=== PATIENT | female | born 1955 | race Caucasian/White ===

== ENCOUNTER 2018-12-07 14:35 | Emergency (ER) | payer MEDICARE, MEDICAID ==
--- OUTSIDE RECORDS SUMMARY | 2018-12-07 14:47 | XMS REPORT | Continuity of Care Document ---
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 [employer] Darline Sequeira PayID: [id number] [address] [place] [address] Policy Number: [id number] Medicaid Darline Sequeira PayID: [id number] [address] [place] [address] Problems Active Problems Provider Date Benign essential hypertension Kita Sauceda MD Onset: 02/23/2018 Mixed hyperlipidemia Kita Sauceda MD Onset: 02/23/2018 Pure hypercholesterolemia Kita Sauceda MD Onset: 02/23/2018 Family History Date Family Member(s) Observation Comments : (age 72 Mother due to Cervical Years) Cancer Onset: (age 45 Years) First Daughter Colon Cancer : (age 50 First Brother due to Premature Alcholic Years) Heart Attack Second Brother due to motor cycle () accident First Sister cancer,melonoma Third Grandson bone,cancer Maternal Grandmother due to Diabetes () Social History Type Date Description Comments Sex Unknown Marital Status Patient is Lives With Alone Home Environment Lives With Grandchildren,whom she fosters Occupation Unemployed Occupation Disabled Tobacco Use Start: Unknown Patient is a current cigarette smoker, smokes every day Smoking Status Reviewed: 11/15/18 Patient is a current cigarette smoker, smokes every day Smokeless Tobacco Never Used Smokeless Tobacco ETOH Use Drinks Alcoholic Beverages Rarely Tobacco Use Start: Unknown Patient is a current Less than half of a smoker, smokes every pack day Recreational Drug Use Denies Drug Use Exercise Type/Frequency Does not exercise Allergies, Adverse Reactions, Alerts Description No Known Drug Allergies Medications Active Medications SIG Qnty Indications Ordering Date Provider Metoprolol Tartrate 1 by mouth twice 60tabs Kita Sauceda MD 11/03/2018 25mg a day Tablets Myrbetriq 1 by mouth every 30tabs Igor Fuentes 08/18/2018 50mg Tablets ER day M.D. 24HR Fluoxetine HCL 1 po in am Jacquelin Stefanie 10mg TRAV [place] Capsules Chantix 1 po twice daily [facility] 1mg Tablets in am and pm TRAV [place] Gabapentin take one tablet Unknown 800mg Tablets by mouth three times a day Victoza [facility] 18mg/3ML Solution TRAV [place] Pen-Inject Furosemide 1 po daily [facility] 20mg Tablets TRAV [place] Amitriptyline HCL 1 by mouth every Unknown 50mg day Tablets Clotrimazole apply to affected Unknown 1% Cream area twice a day Ezetimibe 1 by mouth every Unknown 10mg Tablets day Nystop apply under Unknown [id number] breast area twice Powder a day Meloxicam 1 by mouth every Unknown 15mg Tablets day c food Loratadine 1 by mouth every Unknown 10mg Tablets day Levemir Flextouch Inject 70 Units Unknown Under The Skin 100Unit/ML Solution Once Daily Taper Pen-Inject Down Bupropion HCL ER (XL) Take One Tablet Unknown By Mouth Every 300mg Tablets ER 24HR Day Miralax 17g by mouth Unknown [id number] Packet twice a day as needed constipation. Omeprazole 1 by mouth every Unknown 20mg Capsules day DR Metformin HCL 1 by mouth twice Unknown 1000mg a day Tablets Fenofibrate 1 by mouth every Unknown 145mg Tablets day Symbicort 2 puff twice a Unknown 160-4.5mcg/Act day Aerosol Aspirin Ec 1 by mouth every Unknown 81mg Tablets day DR Ahumada HFA 2 puffs every 4-6 Unknown 108(90Base) hours as needed mcg/Act Aerosol sob History Medications Cipro 1 by mouth twice a 10tabs Alfredo, 09/05/2018 - 500mg Tablets day Martha Costa Unknown Bactrim DS 1 tab by mouth 14tabs Alfredo, 08/22/2018 - 800-160mg twice a day Martha Costa Unknown Tablets Colace 1 by mouth daily 60caps K59.00 Sinan, 06/16/2018 - 100mg Capsules and can take twice MD Kenneth 07/21/2018 a day as needed Dulcolax take one a night 10tabs K59.00 Sinan, 06/16/2018 - 5mg Tablets DR the week before MD Kenneth 07/21/2018 the colonoscopy Citroma drink 1 bottle at 296ml K59.00 Sinan, 06/16/2018 - 1.745GM/30ML 12pm (noon)the day MD Kenneth 07/21/2018 Solution before the procedure Spiriva Respimat take 2 puffs once 4gm J44.9 Srini Nelson, 06/04/2016 - daily. Please load 06/16/2018 2.5mcg/Act Aerosol and teach medication. Nicotine Polacrilex take 1 piece every 1units F17.210 Srini Nelson, 2016 - 2mg 2 hours as needed Unknown Gum for cravings. Nicotine use one patch once 28units F17.210 Srini Nelson, 06/04/2016 - 14mg/24HR daily. Unknown Patches 24HR Allopurinol 1 by mouth every Unknown - 100mg Tablets day 06/16/2018 Calcium 600+D High 1 by mouth twice a Unknown - Potency day 06/16/2018 [id number] Tablets Cyclobenzaprine HCL 1-2 tabs by mouth Unknown - 5mg every night at 07/21/2018 Tablets bedtime Zetia 1 by mouth every Unknown - 10mg Tablets day 07/21/2018 Fluconazole 1 by mouth by Unknown - 150mg Tablets mouth every day 06/16/2018 Glipizide 1 by mouth every Unknown - 5mg Tablets day Unknown Hydrocodone-Acetaminop 1 by mouth every 6 Unknown - hen hours as needed 07/21/2018 5-325mg Tablets pain Levothyroxine Sodium 1 by mouth every Unknown - day Unknown 50mcg Tablets Lisinopril 1 by mouth every Unknown - 20mg Tablets day Unknown Metoprolol Succinate 1 by mouth two Unknown - ER times a day 06/16/2018 25mg Tablets ER 24HR Multi Vitamin 1 by mouth every Unknown - Tablets day 06/16/2018 Oxybutynin Chloride Unknown - 07/27/2018 5mg/5ML Syrup Vital Signs Date Vital Result Comment 11/15/2018 11:26am BP Systolic Sitting Left Arm 122 mmHg BP Diastolic Sitting Left Arm 64 mmHg Heart Rate 93 /min Respiratory Rate 20 /min Height 59 inches 4'11" Weight 252.00 lb BMI (Body Mass Index) 50.9 kg/m2 BSA (Body Surface Area) 2.03 m2 Fielding body weight in kilograms 45 kg O2 Saturation Level with Exercise 97 % 10/04/2018 10:23am BP Systolic 110 mmHg BP Diastolic 74 mmHg Heart Rate 94 /min Respiratory Rate 18 /min Height 59 inches 4'11" Weight 246.00 lb BMI (Body Mass Index) 49.7 kg/m2 BSA (Body Surface Area) 2.01 m2 Fielding body weight in kilograms 45 kg O2 % BldC Oximetry 97 % 09/14/2018 1:18pm BP Systolic 102 mmHg BP Diastolic 68 mmHg Heart Rate 89 /min Respiratory Rate 18 /min Height 59 inches 4'11" Weight 259.00 lb BMI (Body Mass Index) 52.3 kg/m2 BSA (Body Surface Area) 2.06 m2 Fielding body weight in kilograms 45 kg O2 % BldC Oximetry 93 % Pain Level 8 hip pain 08/23/2018 10:49am BP Systolic Sitting Left Arm 110 mmHg BP Diastolic Sitting Left Arm 64 mmHg Heart Rate 80 /min Respiratory Rate 18 /min Height 61 inches 5'1" Weight 268.00 lb BMI (Body Mass Index) 50.6 kg/m2 BSA (Body Surface Area) 2.14 m2 Fielding body weight in kilograms 48 kg O2 % BldC Oximetry 97 % 08/18/2018 3:43pm BP Systolic 115 mmHg BP Diastolic 68 mmHg Body Temperature 97.8 F Heart Rate 81 /min Respiratory Rate 18 /min O2 % BldC Oximetry 95 % Pain Level 7 back and hip pain 08/11/2018 12:26pm BP Systolic 119 mmHg BP Diastolic 68 mmHg Body Temperature 99.3 F Heart Rate 116 /min Respiratory Rate 18 /min O2 % BldC Oximetry 96 % Pain Level 0 07/27/2018 11:30am BP Systolic 119 mmHg BP Diastolic 76 mmHg Body Temperature 98.8 F Heart Rate 68 /min Respiratory Rate 20 /min Height 59.25 inches 4'11.25" Weight 229.00 lb Pt reported weight BMI (Body Mass Index) 45.9 kg/m2 BSA (Body Surface Area) 1.96 m2 Fielding body weight in kilograms 45 kg O2 % BldC Oximetry 99 % Ra Pain Level 7 RT Hip, Lower Mid Back 07/21/2018 1:30pm BP Systolic 138 mmHg BP Diastolic 89 mmHg Body Temperature 97.9 F Heart Rate 81 /min Respiratory Rate 18 /min Weight 229.00 lb O2 % BldC Oximetry 97 % Pain Level 6 lower spine 06/16/2018 2:43pm BP Systolic Sitting Left Arm 130 mmHg BP Diastolic Sitting Left Arm 70 mmHg Heart Rate 78 /min Respiratory Rate 18 /min Height 59 inches 4'11" Weight 230.00 lb per pt BMI (Body Mass Index) 46.4 kg/m2 BSA (Body Surface Area) 1.96 m2 Fielding body weight in kilograms 45 kg O2 % BldC Oximetry 98 % 06/02/2018 2:54pm BP Systolic Sitting Left Arm 104 mmHg BP Diastolic Sitting Left Arm 58 mmHg Heart Rate 101 /min Respiratory Rate 18 /min Height 59 inches 4'11" Weight 251.00 lb BMI (Body Mass Index) 50.7 kg/m2 BSA (Body Surface Area) 2.03 m2 Fielding body weight in kilograms 45 kg O2 % BldC Oximetry 94 % Ora 06/04/2016 3:47pm BP Systolic Sitting Right Arm 136 mmHg BP Diastolic Sitting Right Arm 70 mmHg Heart Rate 85 /min Respiratory Rate 16 /min Height 59 inches 4'11" Weight 240.00 lb BMI (Body Mass Index) 48.5 kg/m2 BSA (Body Surface Area) 1.99 m2 Fielding body weight in kilograms 45 kg O2 % BldC Oximetry 92 % Room Air Results Test Date Facility Test Result H/L Range Note Urine Culture 09/14/2018 [facility] Urine Culture NO GROWTH: 1, [address] FINAL <[place] [address] NOTE> [phone] Lab Report: 09/05/2018 N2N/CCD Import Egfr 59.1 (?) >60 A1c, CMP Qatari Egfr Non- 48.8 (?) >60 Ast 19 U/L 13-39 Alt 9 U/L 7-52 Alkaline Phosphatase 50 U/L 34-104 Total Bilirubin 0.50 mg/dL 0.2-1.0 Albumin/Globulin Ratio 1.6 1-3 Globulin 2.6 2-4 Albumin 4.1 g/dL 3.2-5.2 Total Protein 6.7 g/dL 6.4-8.9 Calcium 9.8 mg/dL 8.6-10.3 BUN/Creatinine Ratio 22.3 High 8-20 Creatinine 1.12 mg/dL High 0.51-0.95 Blood Urea Nitrogen 25 mg/dL High 6-24 Co2 Carbon Dioxide 24 mmol/L 22-32 Chloride 99 mmol/L Low 101-111 Potassium 4.8 mmol/L 3.5-5.0 Sodium 134 mmol/L Low 135-145 Hemoglobin A1c/Hemoglobin.total in Blood 9.7 % High 4.0-5.6 Urine Culture 09/02/2018 [facility] Urine ENTEROBACTER LATRICE Abnormal [address] Culture <SEE NOTE> [place] [address] [phone] Quantity > 100,000 CFU/mL 4 Urine Culture PROTEUS MIRABILI <SEE NOTE> Abnormal 5 Quantity 50,000 - 100,000 <SEE NOTE> 6 Enterobacter Cloacae Complex 09/02/2018 [facility] Nitrofurantoin [address] [place] [address] [phone] Trimethoprim/Sulfamethoxazole >=320 R Cefazolin >=64 R Ciprofloxacin <=0.25 S Piperacillin/Tazobactam <=4 S Ceftazidime <=1 S Ceftriaxone <=1 S Cefepime <=1 S Levofloxacin <=0.12 S Imipenem <=0.25 S Gentamicin <=1 S Tobramycin <=1 S Proteus Mirabilis 09/02/2018 [facility] Nitrofurantoin [address] [place] [address] [phone] Trimethoprim/Sulfamethoxazole >=320 R Ampicillin <=2 S Cefazolin 8 S Ampicillin/Sulbactam <=2 S Ciprofloxacin 2 I Piperacillin/Tazobactam <=4 S Ceftazidime <=1 S Ceftriaxone <=1 S Cefepime <=1 S Levofloxacin 2 S Gentamicin <=1 S Tobramycin <=1 S Urine Culture 08/18/2018 [facility] Urine Culture ESCHERICHIA COLI Abnormal [address] [place], [place] [id number] [phone] Quantity > 100,000 CFU/mL 8 Urine Culture MIXED URETHRAL F <SEE NOTE> 9 Quantity 10,000 - 100,000 <SEE NOTE> 10 Escherichia Coli 08/18/2018 [facility] Nitrofurantoin <=[address] [place] [address] [phone] Trimethoprim/Sulfamethoxazole <=20 S Ampicillin 8 S Cefazolin <=4 S Ampicillin/Sulbactam 4 S Ciprofloxacin <=0.25 S Piperacillin/Tazobactam <=4 S Ceftazidime <=1 S Ceftriaxone <=1 S Cefepime <=1 S Levofloxacin <=0.12 S Imipenem <=0.25 S Gentamicin <=1 S Tobramycin <=1 S Urine Dipstick 08/18/2018 [facility] Ua Color yellow Yellow Ua Clarity clear Clear Ua Leuko 15 High Negative Ua Nitrite neg Negative Ua Urobilinogen 0.2 0.2 - 1.0 E.U./dL Ua Protein neg Negative Ua PH 6.5 6.5-7.5 Ua Blood neg Negative Ua Specific [place] 1.015 1.010-1.030 Ua Ketones neg Negative Ua Bilirubin neg Negative Ua Glucose neg Negative Lab Report: 08/04/2018 N2N/CCD Import Hemoglobin 10.2 % High 4.0-5.6 CMP, Lipid A1c/Hemoglobin.total in Panel, A1c Blood Cholesterol in LDL [Mass/volume] in Serum or Plasma 51 mg/dL HDL Cholesterol 35.8 mg/dL Cholesterol 120 mg/dL Triglycerides 167 mg/dL Egfr 72.3 (?) >60 Egfr Non- 59.8 (?) >60 Ast 21 U/L 13-39 Alt 11 U/L 7-52 Alkaline Phosphatase 72 U/L 34-104 Total Bilirubin 0.60 mg/dL 0.2-1.0 Albumin/Globulin Ratio 1.4 1-3 Globulin 2.9 2-4 Albumin 4.1 g/dL 3.2-5.2 Total Protein 7.0 g/dL 6.4-8.9 Calcium 9.6 mg/dL 8.6-10.3 BUN/Creatinine Ratio 21.3 High 8-20 Creatinine 0.94 mg/dL 0.51-0.95 Blood Urea Nitrogen 20 mg/dL 6-24 Co2 Carbon Dioxide 26 mmol/L 22-32 Chloride 99 mmol/L Low 101-111 Potassium 4.7 mmol/L 3.5-5.0 Sodium 134 mmol/L Low 135-145 Lab Report: Ua RFX 03/09/2018 N2N/CCD Import Urine Leuk Negative Negative Micro Culture II Esterase Urine Nitrite - Dipstick Negative Negative Urine Urobilinogen - Dipstick 0.2 E.U./DL 0.2-1.0 Urine Blood Negative Negative Urine Specific [place] 1.010 1.010-1.030 Urine Ketone Negative Negative Urine Bilirubin - Dipstick Negative Negative Urine Glucose - Dipstick 100 High Negative Urine Color Yellow Yellow Lab Report: CBS W/Automated 03/09/2018 N2N/CCD Import Eos # 0.15 10*3/uL 0.0-0.5 Diff Eo% 1.1 % 0.0-6.6 Coal % 4.8 % 4.3-13.2 Lymph % 32.1 % 20.0-42.0 Neut% 61.6 % 40.4-72.8 Mean Platelet Volume 10.7 fL 8.9-12.4 Red Cell Distri Width SD 42.9 fL 3-47 Platelet Count 155 10*3/mm3 155-360 Mean Corpuscular HGB Conc 34.5 g/dL High 30.8-34.3 Mean Corpuscular HGB 30.7 pg 25.9-32.7 Mean Cell Volume 89.0 fL 80.9-99.0 Hematocrit 39.7 % 36.0-46.1 Hemoglobin 13.7 g/dL 11.6-15.8 Red Blood Count 4.46 M/Ul 3.90-5.40 White Blood Count 13.7 10*3/mm3 High 3.1-10.7 Lab Report: Comprehensive 03/09/2018 N2N/CCD Import SGPT/Alt 13 U/L 12- 78 Metabolic Panel Sgot/Ast 17 U/L 15-37 Bilirubin,Total 0.5 mg/dL 0.2-1.0 Alb/Glob 0.9 ratio Globulin 3.6 g/dL 1.9-4.3 Albumin 3.3 g/dL Low 3.4-5.0 Total Protein 6.9 g/dL 6.4-8.2 Calcium 9.4 mg/dL 8.5-10.1 Carbon Dioxide 26 mmol/L 21-32 Chloride 107 mmol/L 98-107 Potassium 4.1 mmol/L 3.5-5.1 Sodium 140 mmol/L 136-145 BUN/Creat 16.0 ratio If >60 >60 Glom Filtration Rate, Estimate 59 mL/min/1.73m2 >60 Creatinine 1.0 mg/dL 0.6-1.3 BUN 16 mg/dL 7-18 Lab Report: Basic Metabolic 01/31/2018 N2N/CCD Import Calcium 8.9 mg/dL 8.5-10.1 Panel Carbon Dioxide 25 mmol/L 21-32 Chloride 105 mmol/L 98-107 Potassium 4.6 mmol/L 3.5-5.1 Sodium 139 mmol/L 136-145 BUN/Creat 38.8 ratio If >60 >60 Glom Filtration Rate, Estimate >60 mL/min >60 Creatinine 0.9 mg/dL 0.6-1.3 BUN 35 mg/dL High 7-18 Lab Report: CBC 01/30/2018 N2N/CCD Import Mean Platelet Volume 12.0 fL 8.9-12.4 Platelet Count 176 10*3/mm3 155-360 Mean Corpuscular HGB Conc 34.0 g/dL 30.8-34.3 Mean Corpuscular HGB 30.4 pg 25.9-32.7 Mean Cell Volume 89.2 fL 80.9-99.0 Hematocrit 37.3 % 36.0-46.1 Hemoglobin 12.7 g/dL 11.6-15.8 Red Blood Count 4.18 M/Ul 3.90-5.40 White Blood Count 19.3 10*3/mm3 High 3.1-10.7 Lab Report: Glycohemoglobin A1c 01/29/2018 N2N/Newsblur Import eAG 160 mg/dL Hemoglobin A1c/Hemoglobin.total in Blood 7.2 % High 4.2-6.3 Lab Report: 01/29/2018 N2N/CCD Import Arterial Blood 7.47 High 7.35-7.45 Arterial Blood Gas pH Gas Lab Report: Basic 01/29/2018 N2N/CCD Import Calcium 9.0 mg/dL 8.5-10.1 Metabolic Panel Carbon Dioxide 22 mmol/L 21-32 Chloride 103 mmol/L 98-107 Potassium 3.9 mmol/L 3.5-5.1 Sodium 137 mmol/L 136-145 BUN/Creat 20.0 ratio If >60 >60 Glom Filtration Rate, Estimate 53 mL/min/1.73m2 >60 Creatinine 1.1 mg/dL 0.6-1.3 BUN 22 mg/dL High 7-18 Lab Report: CED W/Automated 01/29/2018 N2N/CCD Import Eos # 0.01 10*3/uL 0.0-0.5 Diff Eo% 0.1 % 0.0-6.6 Coal % 2.0 % Low 4.3-13.2 Lymph % 9.3 % Low 20.0-42.0 Neut% 88.5 % High 40.4-72.8 Mean Platelet Volume 11.4 fL 8.9-12.4 Red Cell Distri Width SD 40.1 fL 3-47 Platelet Count 180 10*3/mm3 155-360 Mean Corpuscular HGB Conc 35.3 g/dL High 30.8-34.3 Mean Corpuscular HGB 30.8 pg 25.9-32.7 Mean Cell Volume 87.2 fL 80.9-99.0 Hematocrit 41.6 % 36.0-46.1 Hemoglobin 14.7 g/dL 11.6-15.8 Red Blood Count 4.77 M/Ul 3.90-5.40 White Blood Count 14.8 10*3/mm3 High 3.1-10.7 Lab Report: CED W/Automated 01/28/2018 N2N/CCD Import Eos # 0.05 10*3/uL 0.0-0.5 Diff, Slide Review, DI Eo% 0.3 % 0.0-6.6 Coal % 5.0 % 4.3-13.2 Lymph % 20.6 % 20.0-42.0 Neut% 73.8 % High 40.4-72.8 Mean Platelet Volume 11.0 fL 8.9-12.4 Red Cell Distri Width SD 41.4 fL 3-47 Platelet Count 194 10*3/mm3 155-360 Mean Corpuscular HGB Conc 35.0 g/dL High 30.8-34.3 Mean Corpuscular HGB 30.8 pg 25.9-32.7 Mean Cell Volume 87.8 fL 80.9-99.0 Hematocrit 41.1 % 36.0-46.1 Hemoglobin 14.4 g/dL 11.6-15.8 Red Blood Count 4.68 M/Ul 3.90-5.40 White Blood Count 18.4 10*3/mm3 High 3.1-10.7 Lab Report: Comprehensive 01/28/2018 N2N/CCD Import Troponin-I 0.037 ng/mL Metabolic Panel NT-proBNP 2670.0 High <125 SGPT/Alt 9 U/L Low 12-78 Sgot/Ast 8 U/L Low 15-37 Bilirubin,Total 1.1 mg/dL High 0.2-1.0 Alb/Glob 0.9 ratio Globulin 3.8 g/dL 1.9-4.3 Albumin 3.6 g/dL 3.4-5.0 Total Protein 7.4 g/dL 6.4-8.2 Calcium 8.9 mg/dL 8.5-10.1 Carbon Dioxide 24 mmol/L 21-32 Chloride 104 mmol/L 98-107 Potassium 4.1 mmol/L 3.5-5.1 Sodium 138 mmol/L 136-145 BUN/Creat 16.6 ratio If 58 mL/min >60 Glom Filtration Rate, Estimate 48 mL/min/1.73m2 >60 Creatinine 1.2 mg/dL 0.6-1.3 BUN 20 mg/dL High 7-18 Lab Report: CBC, CMP, Lipid 01/17/2018 N2N/CCD Import Albumin 3.9 g/dL 3.2-5.2 Panel, A1c Albumin/Globulin Ratio 1.4 1-3 Alkaline Phosphatase 82 U/L 34-104 Alt 7 U/L 7-52 Ast 18 U/L 13-39 BUN/Creatinine Ratio 21.9 High 8-20 Blood Urea Nitrogen 16 mg/dL 6-24 Calcium 9.4 mg/dL 8.6-10.3 Chloride 104 mmol/L 101-111 Cholesterol 199 mg/dL Cholesterol in LDL [Mass/volume] in Serum or Plasma 123 mg/dL Co2 Carbon Dioxide 23 mmol/L 22-32 Creatinine 0.73 mg/dL 0.51-0.95 Egfr 97.1 (?) >60 Egfr Non- 80.3 (?) >60 Globulin 2.8 2-4 HDL Cholesterol 33.8 mg/dL Hematocrit 44 % 35-47 Hemoglobin 14.9 g/dL 12.0-16.0 Hemoglobin A1c/Hemoglobin.total in Blood 7.2 % High 4.0-5.6 Mean Corpuscular HGB Conc 34 g/dL 31-36 Mean Corpuscular Hemoglobin 30 pg 27-31 Mean Corpuscular Volume 89 fL 80-97 Mean Platelet Volume 9.5 Um3 7.4-10.4 Platelet Count 190 10 3/Ul 150-450 Potassium 4.0 mmol/L 3.5-5.0 Red Blood Count 4.91 10 6/Ul 4.00-5.40 Red Cell Distribution Width 13 % 10.5-15 Sodium 138 mmol/L 135-145 Total Bilirubin 0.60 mg/dL 0.2-1.0 Total Protein 6.7 g/dL 6.4-8.9 Triglycerides 211 mg/dL White Blood Count 14.6 10 3/Ul High 3.5-10.8 Lab Report: CBC, CMP, Lipid 10/22/2017 N2N/CCD Import Albumin 4.2 g/dL 3.2-5.2 Panel, TSH, Vitamin B1 Albumin/Globulin Ratio 1.4 1-3 Alkaline Phosphatase 95 U/L 34-104 Alt 5 U/L Low 7-52 Ast 18 U/L 13-39 BUN/Creatinine Ratio 19.0 8-20 Blood Urea Nitrogen 16 mg/dL 6-24 Calcium 10.1 mg/dL 8.6-10.3 Chloride 104 mmol/L 101-111 Cholesterol 238 mg/dL Cholesterol in LDL [Mass/volume] in Serum or Plasma 152 mg/dL Co2 Carbon Dioxide 28 mmol/L 22-32 Creatinine 0.84 mg/dL 0.51-0.95 Egfr 87.8 (?) >60 Egfr Non- 68.3 (?) >60 Globulin 3.0 2-4 HDL Cholesterol 43.4 mg/dL Hematocrit 47 % 35-47 Hemoglobin 16.1 g/dL High 12.0-16.0 Hemoglobin A1c/Hemoglobin.total in Blood 6.0 % High 4.0-5.6 Mean Corpuscular HGB Conc 34 g/dL 31-36 Mean Corpuscular Hemoglobin 31 pg 27-31 Mean Corpuscular Volume 90 fL 80-97 Mean Platelet Volume 9.3 Um3 7.4-10.4 Platelet Count 177 10 3/Ul 150-450 Potassium 4.7 mmol/L 3.5-5.0 Red Blood Count 5.26 10 6/Ul 4.0-5.4 Red Cell Distribution Width 14 % 10.5-15 Sodium 140 mmol/L 139-145 TSH (Thyroid Stimulating Horm) 2.80 u[iU]/mL 0.34-5.60 Total Bilirubin 0.70 mg/dL 0.2-1.0 Total Protein 7.2 g/dL 6.4-8.9 Triglycerides 213 mg/dL White Blood Count 15.0 10 3/Ul High 3.5-10.8 Lab Report: TSH, Free T4, CMP, 06/26/2016 N2N/CCD Import Albumin 4.2 g/dL 3.2-5.2 Lipid Panel, A1c Albumin/Globulin Ratio 1.3 1-3 Alkaline Phosphatase 116 U/L High 34-104 Alt 8 U/L 7-52 Ast 25 U/L 13-39 BUN/Creatinine Ratio 14.1 8-20 Blood Urea Nitrogen 11 mg/dL 6-24 Calcium 9.9 mg/dL 8.6-10.3 Chloride 101 mmol/L 101-111 Cholesterol 230 mg/dL Cholesterol in LDL [Mass/volume] in Serum or * mg/dL Plasma Co2 Carbon Dioxide 21 mmol/L Low 22-32 Creatinine 0.78 mg/dL 0.51-0.95 Egfr 95.9 (?) >60 Egfr Non- 74.6 (?) >60 Globulin 3.2 2-4 HDL Cholesterol 29.1 mg/dL Hemoglobin A1c/Hemoglobin.total in Blood 11.2 % High Less than 6.0 Potassium 4.1 mmol/L 3.5-5.0 Sodium 135 mmol/L 133-145 TSH (Thyroid Stimulating Horm) 2.85 u[iU]/mL 0.34-5.60 Total Protein 7.4 g/dL 6.4-8.9 Triglycerides 453 mg/dL 1 N39.0 2 NO GROWTH: FINAL REPORT 3 ENTEROBACTER CLOACAE COMPLEX 4 > 100,000 CFU/mL 5 PROTEUS MIRABILIS 6 50,000 - 100,000 CFU/mL 7 ESCHERICHIA COLI 8 > 100,000 CFU/mL 9 MIXED URETHRAL CAROLINE 10 10,000 - 100,000 CFU/mL Procedures Date Code Description Status 10/10/2018 86344 Stress Test Interpre And Report Only Completed 10/10/2018 85388 Stress Test Physician Super Only Completed 10/10/2018 47048 Myocardial Imaging Tomographic Multiple Study AT Rest Completed Or Stress 10/04/2018 06225 EKG-Tracing And Report Completed 09/14/2018 48042 Bladder Catheterization Completed 08/18/2018 13278 Cystoscopy Completed 08/11/2018 48785 Bladder Catheterization Completed 08/11/2018 42781 Cystometrogram complex w/ voiding and urethral pressure Completed studies 08/11/2018 71926 complex uroflowmetry electronic Completed 08/11/2018 70443 emg studies of urethral sphincter, other than needle, Completed any tech 08/11/2018 43163 voiding pressure study vp purchasing intra abdominal voiding Completed pressure ap 07/06/2018 63250 Colonoscopy With Biopsy Completed 07/06/2018 [id number] Colonoscopy Completed 06/16/2018 47927 Echocardiogram Complete Completed 06/02/2018 02065 EKG-Tracing And Report Completed 06/22/2016 51314 Bronchospasm Provocation Evaluation Multi Spirometric Completed Determinati 06/22/2016 68365 Spirometry Completed Encounters Type Date Location Provider Dx Diagnosis Office Visit 11/15/2018 Cardiology Office Kita Sauceda MD I34.2 Nonrheumatic mitral 11:15a (valve) stenosis Z95.2 Presence of prosthetic heart valve R06.02 Shortness of breath R06.83 Snoring Office Visit 10/04/2018 10:30a Cardiology Office Kita Sauceda, R07.2 Precordial pain R06.02 Shortness of breath Z95.2 Presence of prosthetic heart valve Z01.810 Encounter for preprocedural cardiovascular examination Office Visit 09/14/2018 1:15p Urology Raymundo Palacios, R32 Unspecified urinary PA incontinence Office Visit 08/23/2018 10:15a GI Kenneth Menon MD D12.2 Benign neoplasm of ascending colon K63.5 Polyp of colon K64.0 First degree hemorrhoids Office Visit 07/27/2018 11:15a Urology Raymundo Palacios N39.46 Mixed incontinence R., PA Office Visit 07/21/2018 1:30p Urology Raymundo Palacios N39.46 Mixed incontinence R., PA Office Visit 06/16/2018 2:30p Kenneth Holt, K59.00 Constipation, MD unspecified Z80.0 Family history of malignant neoplasm of digestive organs Z71.6 Tobacco abuse counseling Office Visit 06/02/2018 2:20p Cardiology Office Kita Sauceda, Z95.2 Presence of MD prosthetic heart valve R94.31 Abnormal electrocardiogram [ECG] [EKG] Office Visit 06/04/2016 3:00p Pulmonology Srini Nelson MD J44.9 Chronic obstructive pulmonary disease, unspecified F17.210 Nicotine dependence, cigarettes, uncomplicated Z71.6 Tobacco abuse counseling Plan of Treatment Future Appointment(s):03/22/2019 11:45 am - Kita Sauceda MD at Cardiology [facility]03/16/2019 1:30 pm - Igor Fuentes M.D. at Urology
[2018-12-07 15:18] VITALS: BP 122/69
--- NOTE | 2018-12-07 15:28 | UC ---
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 Pain and erythema for 2 days. Pt states she thinks sores are R/T DM. Pt has applied neosporin and polysporin without improvement" -+ DM. she couldnt get an appt w / her PCP -dneis fevers/chills. has 3 spots on rt leg, 1 on left -denies any problems w/ renal function. no abx allergies. -central eschars forming on all but 1 spot on distal Rt LE, which is the newest spot. there is some mild surrounding swelling. -she reports that he BSs are unchanged. - History of Current Complaint Chief Complaint: UCSkin Time Seen by Provider: 12/07/18 15:26 Stated Complaint: BILATERAL LEG SORES/CRAMPING Hx Last Menstrual Period: "years ago." Pain Intensity: 9 - Allergy/Home Medications Allergies/Adverse Reactions: Allergies Allergy/AdvReac Type Severity Reaction Status Date / Time heparin Allergy Unknown Verified 12/07/18 14:50 Reaction Details Home Medications: Home Medications Albuterol HFA INHALER* [Ventolin HFA Inhaler*] 2 puff INH Q4H PRN 12/07/18 [ History Confirmed 12/07/18] Amitriptyline TAB* [Elavil TAB*] 50 mg PO BEDTIME 12/07/18 [History Confirmed ] Aspirin [Aspir-Low] 81 mg PO DAILY 12/07/18 [History Confirmed 12/07/18] Budesonide/Formote 160/4.5(NF) [Symbicort 160/4.5 (NF)] 2 puff INH BID 12/07/18 [History Confirmed 12/07/18] Bupropion XL* [Wellbutrin XL *] 300 mg PO DAILY 12/07/18 [History Confirmed 03/18] Fenofibrate(NF) [Tricor(NF)] 145 mg PO DAILY 12/07/18 [History Confirmed ] Fluoxetine HCl [Prozac] 10 mg PO DAILY 12/07/18 [History Confirmed 12/07/18] Gabapentin 800 mg PO TID 12/07/18 [History Confirmed 12/07/18] Insulin Detemir (NF) [Levemir (NF)] 55 unit SUBCUT DAILY 12/07/18 [History Confirmed 12/07/18] Liraglutide (NF) [Victoza (NF)] 0.6 mg SUBCUT DAILY 12/07/18 [History Confirmed 12/07/18] Loratadine 10 mg PO DAILY 12/07/18 [History Confirmed 12/07/18] Malathion 0.5 % EX DAILY 12/07/18 [History Confirmed 12/07/18] Meloxicam [Mobic] 15 mg PO DAILY 12/07/18 [History Confirmed 12/07/18] Metoprolol Tartrate TAB* [Lopressor TAB*] 25 mg PO BID 12/07/18 [History Confirmed 12/07/18] Mirabegron (NF) [Myrbetriq (NF)] 50 mg PO DAILY 12/07/18 [History Confirmed 03/18] Nystatin OINT* 1 applic TOPICAL BID 12/07/18 [History Confirmed 12/07/18] Nystatin [Nyamyc] 100,000 unit EX BID 12/07/18 [History Confirmed 12/07/18] Omeprazole 20 mg PO DAILY 12/07/18 [History Confirmed 12/07/18] Varenicline (NF) [Chantix 1 MG TAB (NF)] 1 mg PO BID 12/07/18 [History Confirmed 12/07/18] PMH/Surg Hx/FS Hx/Imm Hx Previously Healthy: Yes Endocrine History: Diabetes Respiratory History: COPD Other History Of: Anticoagulant Therapy - Aspirin ("baby aspirin every day"). 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 Rectocele; left hip replacement. Ear surgery - Family History Known Family History: Positive: Cardiac Disease - Brother from heart disease at 50 years old., Hypertension, Diabetes - Social History Alcohol Use: Rare Substance Use Type: None Smoking Status (MU): Light Every Day Tobacco Smoker Amount Used/How Often: 3-4 cigarettes/day--"Carton lasts a couple weeks." Review of Systems All Other Systems Reviewed And Are Negative: Yes Constitutional: Positive: Negative Skin: Positive: Rash Eyes: Positive: Negative ENT: Positive: Negative Respiratory: Positive: Negative Cardiovascular: Positive: Negative Gastrointestinal: Positive: Negative Genitourinary: Positive: Negative Motor: Positive: Negative Neurovascular: Positive: Negative Musculoskeletal: Positive: Negative Neurological: Positive: Negative Psychological: Positive: Negative Is Patient Immunocompromised?: No Physical Exam Triage Information Reviewed: Yes Appearance: Well-Nourished, Pain Distress, Obese - appears chronically ill. Vital Signs: Initial Vital Signs Temp 97.8 F 12/07/18 14:54 Pulse 84 12/07/18 14:54 Resp 20 12/07/18 14:54 BP 122/69 12/07/18 14:54 Pulse Ox 97 12/07/18 14:54 Vital Signs Reviewed: Yes Eye Exam: Normal ENT: Positive: Pharynx normal Neck exam: Normal Neck: Positive: Supple, Nontender, No Lymphadenopathy Respiratory Exam: Normal Respiratory: Positive: Lungs clear, Normal breath sounds, No respiratory distress, No accessory muscle use. Negative: Crackles, Rhonchi, Stridor, Wheezing Cardiovascular Exam: Normal Cardiovascular: Positive: RRR, Brisk Capillary Refill, Murmur:Sys:Grade _?_/ - II/ - reports she has a known murmur Abdominal Exam: Normal Abdomen Description: Positive: Nontender, Soft - obese Bowel Sounds: Positive: Present Musculoskeletal Exam: Normal Neurological Exam: Normal Psychological Exam: Normal Skin: Positive: Breakdown - 3 lesions on Rt LE w/ eschar forming over 2 of them abouit dime sized. most distal lesion is 0.5 cms diameter w/ mild serosanguinous dc. left LE w/ nickel sized eschared lesion. there is no dc from these. cool to touch. there is mild edema and light pink surrounding cellulitis Course/Dx - Course Course Of Treatment: 4 leg sores in a DM w/ cellulitis that need abx and wound care. I stressed the im,protance of f/u at wound care center of risk of complications and poor healing in DM pts. disc risks of amputations and other complication such as sepsis. she is to go to ER w/ worsening rash, fevers/chills or rigors. - Differential Diagnoses - Skin Complaint Differential Diagnoses: Cellulitis, Contact Dermatitis, Diabetes - Diagnoses Provider Diagnosis: Cellulitis Discharge - Sign-Out/Discharge Documenting (check all that apply): Patient Departure All imaging exams completed and their final reports reviewed: No Studies - Discharge Plan Condition: Stable Disposition: HOME Prescriptions: Sulfamethox/Trimethoprim DS* [Bactrim DS 800/160 TAB*] 1 tab PO BID #28 tab Patient Education Materials: Cellulitis (ED) Referrals: No Primary Care Phys,NOPCP [Primary Care Provider] - Stefanie Roper [Nurse Practitioner] - 2 Days Additional Instructions: Please call the wound care center to be seen this week for close follow up. The infections are of signfiicant concern because you have diabetes and it can be very difficult to heal wounds in diabetics. [facility] [address] [place] [phone] - Billing Disposition and Condition Condition: STABLE Disposition: Home
== END 2018-12-07 15:50 | disposition home or self-care (01) ==
LOC: UCCORT 14:35
DX: L03.116 Cellulitis of left lower limb (principal); L03.115 Cellulitis of right lower limb; E11.9 Type 2 diabetes mellitus without complications; Z79.84 Long term (current) use of oral hypoglycemic drugs; J44.9 Chronic obstructive pulmonary disease, unspecified; F17.210 Nicotine dependence, cigarettes, uncomplicated
CPT/HCPCS: 99212; G0463